=== PATIENT | male | born 1980 | race Caucasian/White ===

== ENCOUNTER 2020-09-07 11:34 | Emergency (ER) | payer SELFPAY ==
[~2020-09-07] VITALS: Ht 175.2 cm; Wt 75.0 kg
--- NOTE | 2020-09-07 11:38 | ED Chest Pain ---
General Stated Complaint: CHEST PAIN Source: patient Exam Limitations: no limitations History of Present Illness Date Seen by Provider: Sep 07, 2020 Time Seen by Provider: 11:38 Initial Comments This is a 40-year-old male who presents to the ER with complaints of left-sided chest pressure that started around eight this morning upon awakening. States that pain is constant, pressure, rates 1-2 out of 10. Has never had this pain before. Denies any history of hypertension, coronary disease, family cardiac history. He is a pack per day smoker, no illicit drug use currently however he has used illicit drugs in the past this has been over 2 years ago. States that he does drink occasionally and he [place] alcohol [place] Allergies and Home Medications Allergies Coded Allergies: No Known Drug Allergies (Unverified , 09/07/20) Physical Exam Vital Signs Vital Signs - First Documented Capillary Refill : Height, Weight, BMI Height: '" Weight: lbs. oz. kg; BMI Method: Progress/Results/Core Measures Results/Orders Lab Results Laboratory Tests Test 09/07/20 11:56 Range/Units White Blood Count 7.0 4.3-11.0 10^3/uL Red Blood Count 4.85 4.30-5.52 10^6/uL Hemoglobin 14.6 13.3-17.7 g/dL Hematocrit 44 40-54 % Mean Corpuscular Volume 90 80-99 fL Mean Corpuscular Hemoglobin 30 25-34 pg Mean Corpuscular Hemoglobin Concent 33 32-36 g/dL Red Cell Distribution Width 12.9 10.0-14.5 % Platelet Count 264 130-400 10^3/uL Mean Platelet Volume 10.8 9.0-12.2 fL Immature Granulocyte % (Auto) 1 % Neutrophils (%) (Auto) 55 42-75 % Lymphocytes (%) (Auto) 32 12-44 % Monocytes (%) (Auto) 8 0-12 % Eosinophils (%) (Auto) 4 0-10 % Basophils (%) (Auto) 1 0-10 % Neutrophils # (Auto) 3.9 1.8-7.8 10^3/uL Lymphocytes # (Auto) 2.2 1.0-4.0 10^3/uL Monocytes # (Auto) 0.5 0.0-1.0 10^3/uL Eosinophils # (Auto) 0.3 0.0-0.3 10^3/uL Basophils # (Auto) 0.1 0.0-0.1 10^3/uL Immature Granulocyte # (Auto) 0.0 0.0-0.1 10^3/uL Prothrombin Time 13.4 12.2-14.7 SEC INR Comment 1.0 0.8-1.4 Activated Partial Thromboplast Time 28 24-35 SEC D-Dimer 0.23 0.00-0.49 UG/ML Sodium Level 140 135-145 MMOL/L Potassium Level 4.7 3.6-5.0 MMOL/L Chloride Level 104 98-107 MMOL/L Carbon Dioxide Level 27 21-32 MMOL/L Anion Gap 9 5-14 MMOL/L Blood Urea Nitrogen 9 7-18 MG/DL Creatinine 0.85 0.60-1.30 MG/DL Estimat Glomerular Filtration Rate 100 BUN/Creatinine Ratio 11 Glucose Level 98 70-105 MG/DL Calcium Level 8.5 8.5-10.1 MG/DL Corrected Calcium 8.7 8.5-10.1 MG/DL Magnesium Level 2.0 1.6-2.4 MG/DL Total Bilirubin 0.3 0.1-1.0 MG/DL Aspartate Amino Transf (AST/SGOT) 14 5-34 U/L Alanine Aminotransferase (ALT/SGPT) 11 0-55 U/L Alkaline Phosphatase 76 40-136 U/L Total Creatine Kinase 31 30-200 U/L Myoglobin 24.7 10.0-92.0 NG/ML Troponin I < 0.028 <0.028 NG/ML Total Protein 6.1 L 6.4-8.2 GM/DL Albumin 3.7 3.2-4.5 GM/DL My Orders Orders - MANNY VARGAS [employer] Cbc With Automated Diff (09/07/20 11:37) Magnesium (09/07/20 11:37) Chest 1 View, Ap/Pa Only (09/07/20 11:37) Ekg Tracing (09/07/20 11:37) Comprehensive Metabolic Panel (09/07/20 11:37) Myoglobin Serum (09/07/20 11:37) Protime With Inr (09/07/20 11:37) Partial Thromboplastin Time (09/07/20 11:37) O2 (8/1/21 11:37) Monitor-Rhythm Ecg Trace Only (09/07/20 11:37) Ed Iv/Invasive Line Start (09/07/20 11:37) Creatine Kinase (09/07/20 11:37) Troponin I (09/07/20 11:37) Nitroglycerin 0.4 Mg Btl 25's (Nitrostat (09/07/20 11:45) Aspirin Chewable Tablet (Baby Aspirin Ch (09/07/20 11:45) Fibrin Degradation Products (09/07/20 11:56) Medications Given in ED Current Medications Medications Dose Ordered Sig/Tito Route Start Time Stop Time Status Last Admin Dose Admin Aspirin 324 mg ONCE ONCE PO 09/07/20 11:45 09/07/20 11:46 DC 09/07/20 11:59 324 MG Nitroglycerin 0.4 mg UD PRN SL 09/07/20 11:45 09/07/20 12:00 0.4 MG Vital Signs/I&O 09/07/20 09/07/20 11:47 11:47 Temp 36.7 Pulse 88 Resp 20 B/P (MAP) 140/95 (110) Pulse Ox 99 O2 Delivery Room Air Room Air Departure Impression Primary Impression: Chest pain Disposition: HOME, SELF-CARE Condition: Improved Departure-Patient Inst. Decision time for Depature: 12:43 Patient Instructions: Chest Pain (DC) Add. Discharge Instructions: Plan: 1. Return to ER immediately if you develop any chest pain, shortness of breath, sweating, nausea/vomiting. 2. Follow up with your doctor if you have any persistent symptoms. 3. Return for any new or worsening symptoms. MANNY VARG[employer] Sep 07, 2020 11:38
[2020-09-07] MEDS ORDERED: ASPIRIN 81 MG CHEW (CHILDREN'S ASA) PO ONE (11:45)
[2020-09-07] MEDS ORDERED: NITROGLYCERIN 0.4 MG SL TABS BTL 25'S SL PRN (11:45)
[2020-09-07 12:09] LABS: BASOPHILS # (AUTO) 0.1 10^3/uL (0.0-0.1); BASOPHILS % (AUTO) 1 % (0-10); EOSINOPHILS # (AUTO) 0.3 10^3/uL (0.0-0.3); EOSINOPHILS % (AUTO) 4 % (0-10); HEMATOCRIT 44 % (40-54); HEMOGLOBIN 14.6 g/dL (13.3-17.7); LYMPHOCYTES # (AUTO) 2.2 10^3/uL (1.0-4.0); LYMPHOCYTES % (AUTO) 32 % (12-44); MEAN CORPUSCULAR HEMOGLOBIN 30 pg (25-34); MEAN CORPUSCULAR HGB CONC 33 g/dL (32-36); MEAN CORPUSCULAR VOLUME 90 fL (80-99); MEAN PLATELET VOLUME 10.8 fL (9.0-12.2); MONOCYTES # (AUTO) 0.5 10^3/uL (0.0-1.0); MONOCYTES % (AUTO) 8 % (0-12); NEUTROPHILS # (AUTO) 3.9 10^3/uL (1.8-7.8); NEUTROPHILS % (AUTO) 55 % (42-75); PLATELET COUNT 264 10^3/uL (130-400)
[2020-09-07 12:14] LABS: ALBUMIN 3.7 GM/DL (3.2-4.5)
[2020-09-07 12:15] LABS: POTASSIUM 4.7 MMOL/L (3.6-5.0)
[2020-09-07 12:16] LABS: CALCIUM 8.5 MG/DL (8.5-10.1)
[2020-09-07 12:17] LABS: TOTAL PROTEIN 6.1 GM/DL (6.4-8.2)
[2020-09-07 12:19] LABS: BILIRUBIN,TOTAL 0.3 MG/DL (0.1-1.0)
[2020-09-07 12:21] LABS: CREATININE SERUM 0.85 MG/DL (0.60-1.30)
[2020-09-07 12:36] LABS: FIBRIN DEGRADATION PRODUCTS 0.23 UG/ML (0.00-0.49); PROTHROMBIN TIME PATIENT 13.4 SEC (12.2-14.7)
[2020-09-07 12:50] VITALS: BP 127/79
--- NOTE | 2020-09-07 12:55 | Diagnostic Imaging Report ---
INDICATION: Shortness of air and chest pain. TIME OF EXAM: 12:31 PM No prior studies are available for comparison. The heart size is normal. The pulmonary vascularity is unremarkable. The lungs are clear. No infiltrate, effusion or pneumothorax is detected. Impression: No acute cardiopulmonary process is detected. Dictated by: Dictated on workstation # [id number]
== END 2020-09-07 12:50 | disposition home or self-care (01) ==
LOC: ER 11:38
DX: R07.9 Chest pain, unspecified (principal); F17.210 Nicotine dependence, cigarettes, uncomplicated
CPT/HCPCS: 36415; 71045; 80053; 82550; 83735; 83874; 84484; 85025; 85379; 85610; 85730; 93005; 93041